=== PATIENT | male | born 1955 | race African-American/Black ===

== ENCOUNTER 2016-10-02 12:28 | Observation (INO) | payer OTHER ==
[~2016-10-02] VITALS: Ht 175.3 cm; Wt 68.0 kg
[~2016-10-02 12:28] MED LIST: AUGMENTIN 875 M1 TAB PO; PERCOCET 325 MG1 TA2 PO; PERCOCET 5-3251 EACH PO; PREDNISONE 20MG20 MG PO; WARFARIN SODIU7.5 M1 PO
--- NOTE | 2016-10-02 13:05 | ED GI/GU/ABDOMINAL COMPLAINT ---
History of Present Illness General Chief Complaint: Abdominal Pain/Flank Pain Stated Complaint: SEVRE ABD PAIN, "HUGE KNOT/LUMP"q Source: patient, old records Exam Limitations: no limitations Vital Signs & Intake/Output Vital Signs & Intake/Output Vital Signs Date Time Temp Pulse Resp B/P Pulse O2 O2 Flow FiO2 Ox Delivery Rate 10/02 1734 96.9 65 18 106/65 97 Room Air 10/02 1713 98.0 20 10/02 1637 96.0 71 18 116/81 98 Room Air 10/02 1442 94.7 74 20 124/75 95 Room Air 10/02 1231 97.0 58 16 97 Room Air Allergies Coded Allergies: NO KNOWN ALLERGIES (05/14/16) Reconcile Medications Warfarin Sodium 7.5 MG TABLET 1 TAB PO 1700 BLOOD THINNER (Reported) Triage Note: TRIAGE; PT TO ED C/O LUMP TO TOP OF GROIN X1 HOUR. STATES PAIN GETTING WORSE. DENIES ANY URINARY S/S. +NAUSEA. Triage Nurses Notes Reviewed? yes Onset: Abrupt Duration: hour(s): (1), constant Timing: recent history Quality/Severity: aching, cramping, sharpness, severe, throbbing Severity Numbers: 10 Location: right lower quadrant Radiation: no radiation Activities at Onset: none Prior Abdominal Problems: similar symptoms No Modifying Factors: none Associated Symptoms: denies HPI: 60-year-old male with history of valve replacement on Coumadin, hernia repair presents complaining of severe 10 out of 10 stabbing sharps throbbing pain to his right lower quadrant and groin for the past 1 hour. He denies any known injury trauma or heavy lifting. He states he has a history of hernia repair in the past is not taken anything for pain. He denies nausea vomiting diarrhea no scrotal pain, swelling, dysuria urgency frequency. He denies any back pain hematuria diarrhea fever chills no other modifying factors or associated symptoms otherwise. (SANTA THIBODEAUX,JENNY) Past History Travel History Traveled to [place] past 21 day No Medical History Any Pertinent Medical History? 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 No (JENNY BEATTY) Review of Systems Review of Systems Constitutional: Reports: see HPI. All Other Systems: Reviewed and Negative Comments Review of systems: See HPI, All other systems negative. Constitutional, no chills no fever, no malaise HEENT: No visual changes no sore throat no congestion Cardiovascular: No chest pain , no palpitation Skin, no rashes, no change in skin Respiratory: No dyspnea no cough no sputum GI: No nausea no vomiting, no diarrhea : No dysuria Muscle skeletal: No joint pain, no back pain, no neck pain, Neurologic: No numbness no headache Psych: No stress Heme/endocrine: No bruising no bleeding Immunology: No lymphadenopathy (JENNY BEATTY) Physical Exam Physical Exam General Appearance: well developed/nourished, alert, moderate distress Gastrointestinal: soft, tenderness, hernia (r inguinal indurated, firm) Comments: Well-developed well-nourished person in no acute distress HEENT: Normal EENT exam; PERRL, EOMI. HEAD is atraumatic. moist mucous membranes. Neck: Supple, normal range of motion Back: Nontender, no CVA tenderness. Full range of motion Cardiovascular: Regular rate and rhythms no murmurs rubs Respiratory: No respiratory distress. Patient speaking in full complete sentences. Breath sounds clear to auscultation bilaterally: NO W/R/R Abdomen: Soft, tender to palpation over the right inguinal region, hernia indurated firm no overlying erythema or warmth nondistended, no appreciable organomegaly. Normal bowel sounds. No rebound/guarding, No appreciable enlargement of the abdominal aorta, No ascites. Extremity: No edema, full range of motion of extremities, Neuro: Alert oriented x3, motor sensory normal,There were no obvious focal neurologic abnormalities. Skin: No appreciable rash on exposed skin, skin is warm and dry. Psych: Mood and affect is normal, memory and judgment is normal. Core Measures ACS in differential dx? No Severe Sepsis Present: No Septic Shock Present: No (JENNY BEATTY) Progress Differential Diagnosis: epididymitis, hernia, orchitis, prostatitis, perforated viscous, SBO, STD, testicular torsion, ureterolithiasis, urinary retention, UTI/ pyelo Plan of Care: Orders Procedure Date/time Status EKG 10/02 1735 Active PARTIAL THROMBOPLASTIN TIME 10/02 1305 Complete PROTHROMBIN TIME 10/02 1305 Complete Saline Lock 10/02 1304 Active LIPASE 10/02 1304 Complete COMPREHENSIVE METABOLIC PANEL 10/02 1304 Complete CBC WITHOUT DIFFERENTIAL 10/02 1304 Complete AMYLASE 10/02 1304 Complete Laboratory Tests 10/02/16 1325: Anion Gap 12, Estimated GFR > 60, BUN/Creatinine Ratio 20.0, Glucose 109 H, Calcium 9.8, Total Bilirubin 1.4 H, AST 98 H, ALT 116 H, Alkaline Phosphatase 86, Total Protein 8.3 H, Albumin 4.5, Globulin 3.8, Albumin/Globulin Ratio 1.2, Amylase 48, Lipase 29, PT 35.6 H, INR 3.43 H, APTT 43 H, CBC w Diff NO MAN DIFF REQ, RBC 4.75, MCV 90.7, MCH 30.2, RDW 14.4, MPV 10.1, Gran % 53.8, Lymphocytes % 35.2, Monocytes % 9.7 H, Eosinophils % 0.9, Basophils % 0.4, Absolute Granulocytes 2.6, Absolute Lymphocytes 1.7, Absolute Monocytes 0.5, Absolute Eosinophils 0, Absolute Basophils 0, PUBS MCHC 33.3 Patient medicated Dilaudid 1 mg IV CAT scan and labs ordered Repeat evaluation patient reports no better with Dilaudid second dose 1 mg IV ordered Tylenol IV ordered discussed with patient family all his lab results pending CAT scan 10/02/2016 3:52:31 PM discussed with patient is CAT scan findings he last ate this morning. Call placed to surgery patient reports pain persists CASE d/w dr arelis catalan surgical lila curiel 170 surgical lila tapia in dept to [place] (SANTA THIBODEAUX,JENNY) Diagnostic Imaging: Viewed by Me: CT Scan. Discussed w/RAD: CT Scan. Radiology Impression: PATIENT: RUFINO ZARATE PRESENT AGE: 60 PATIENT ACCOUNT NO: [id number] : 59 LOCATION: [facility] ([place] ORDERING PHYSICIAN: JENNY THIBODEAUX SERVICE DATE: 10/02/16 EXAM TYPE: CAT - CT ABD & PELVIS W IV CONTRAST EXAMINATION: CT ABDOMEN AND PELVIS WITH CONTRAST. CLINICAL INFORMATION: Incarcerated hernia, right lower quadrant. Right lower quadrant pain. COMPARISON: None TECHNIQUE: Multidetector volumetric imaging was performed of the abdomen and pelvis before and after the IV administration of 93 mL of Optiray 320 intravenous contrast. Sagittal and coronal reformatted images were obtained on the technologist's workstation. DLP: 269 mGy-cm FINDINGS: LUNG BASES: The visualized lung bases are unremarkable. LIVER, GALLBLADDER, AND BILIARY TREE: The liver is normal in size, shape, and attenuation. No focal hepatic lesion or biliary ductal dilatation is present. The gallbladder is unremarkable with no evidence of radiopaque gallstones, gallbladder wall thickening, or obvious pericholecystic inflammatory changes. PANCREAS: Unremarkable. SPLEEN: Unremarkable. ADRENAL GLANDS: Unremarkable. KIDNEYS AND URETERS: The kidneys are normal in size, shape, and attenuation. No hydronephrosis, hydroureter, or calculi seen. No perinephric stranding. There is an 8 mm cyst in the midpole of the right kidney. BLADDER: Unremarkable. GASTROINTESTINAL TRACT: A loop of small bowel projects into a right inguinal hernia with proximal dilatation and air-fluid levels are compatible with a low- grade obstruction. This appears to involve the ileum, just proximal to the ileocecal valve. The majority of the proximal jejunum is nondistended. There is no associated bowel wall thickening, pneumatosis, or free intraperitoneal air. ABDOMINAL WALL: No significant hernia is appreciated. LYMPH NODES: Normal. VASCULAR: Unremarkable. PELVIC VISCERA: Unremarkable. OSSEOUS STRUCTURES: Unremarkable. IMPRESSION: Loop of distal small bowel projects into a right inguinal hernia. There is dilatation with air-fluid levels of small bowel loops in the pelvis proximal to the hernia, suggesting a low-grade obstruction. No bowel wall thickening, pneumatosis, free intraperitoneal air, or focal fluid collection. DICTATED BY: GELA ANGUIANO MD DATE/TIME DICTATED:10/02/161502 DIRECTOR BUSINESS DEVELOPMENT:MARK DATE/TIME TRANSCRIBED:10/02/161502 CONFIDENTIAL, DO NOT COPY WITHOUT APPROPRIATE AUTHORIZATION. <Electronically signed in Other Vendor System> SIGNED BY: GELA ANGUIANO MD 10/02/16 1539 Initial ED EKG: none (JENNY BEATTY) Departure Departure Time of Disposition: 1714 Disposition: STILL A PATIENT Condition: Stable Clinical Impression Primary Impression: Inguinal hernia Secondary Impressions: Bowel obstruction Referrals: PATIENT HAS NO PRIMARY CARE DR (PCP/Family) Departure Forms: Customer Survey General Discharge Information OR/GI Note Spoke With: GUILLE BARON MD ED Treatment Decision: ZARATERUFINO Junior requires urgent operative management or an emergent procedure that cannot be performed in the Emergency Room setting. Transport To: [facility] (JENNY BEATTY) PA/MISSION COORDINATOR Co-Sign Statement Statement: ED Attending supervision documentation- [] I saw and evaluated the patient. I have also reviewed all the pertinent lab results and diagnostic results. I agree with the findings and the plan of care as documented in the PA's/MISSION COORDINATOR's documentation. x I have reviewed the ED Record and agree with the PA's/MISSION COORDINATOR's documentation. [] Additions or exceptions (if any) to the PAs/MISSION COORDINATOR's note and plan are summarized below: [] (JAMAR FIGUEROA,MIRIAN)
[2016-10-02 13:49] LABS: ABSOLUTE BASOPHIL COUNT 0 /CUMM (0.0-0.2); ABSOLUTE EOSINOPHIL COUNT 0 /CUMM (0.0-0.7); ABSOLUTE GRANULOCYTE CT 2.6 /CUMM (1.4-6.5); ABSOLUTE LYMPH COUNT 1.7 /CUMM (1.2-3.4); ABSOLUTE MONOCYTE COUNT 0.5 /CUMM (0.10-0.60); BASOPHIL % 0.4 % (0.0-2.0); EOSINOPHIL % 0.9 % (0-5); HEMATOCRIT 43.1 % (42-52); MEAN CORPUSCULAR HGB 30.2 PG (27.0-31.0); MEAN CORPUSCULAR HGB CONC 33.3 G/DL (33.0-37.0); MEAN CORPUSCULAR VOLUME 90.7 FL (80.0-94.0); MEAN PLATELET VOLUME 10.1 FL (7.4-10.4); PLATELET COUNT 157 /CUMM (130-400); RBC DISTRIBUTION WIDTH 14.4 % (11.5-14.5); RED BLOOD CELL CT 4.75 /CUMM (4.70-6.10); WHITE BLOOD CELL COUNT 4.8 /CUMM (4.8-10.8)
[2016-10-02 13:52] LABS: GRANULOCYTE % 53.8 % (42.2-75.2)
[2016-10-02 14:20] LABS: PT 35.6 SEC (9.4-12.5); PTT 43 SEC (25-37)
--- NOTE | 2016-10-02 15:39 | CT SCAN REPORT ---
EXAMINATION: CT ABDOMEN AND PELVIS WITH CONTRAST. CLINICAL INFORMATION: Incarcerated hernia, right lower quadrant. Right lower quadrant pain. COMPARISON: None TECHNIQUE: Multidetector volumetric imaging was performed of the abdomen and pelvis before and after the IV administration of 93 mL of Optiray 320 intravenous contrast. Sagittal and coronal reformatted images were obtained on the technologist's workstation. DLP: 269 mGy-cm FINDINGS: LUNG BASES: The visualized lung bases are unremarkable. LIVER, GALLBLADDER, AND BILIARY TREE: The liver is normal in size, shape, and attenuation. No focal hepatic lesion or biliary ductal dilatation is present. The gallbladder is unremarkable with no evidence of radiopaque gallstones, gallbladder wall thickening, or obvious pericholecystic inflammatory changes. PANCREAS: Unremarkable. SPLEEN: Unremarkable. ADRENAL GLANDS: Unremarkable. KIDNEYS AND URETERS: The kidneys are normal in size, shape, and attenuation. No hydronephrosis, hydroureter, or calculi seen. No perinephric stranding. There is an 8 mm cyst in the midpole of the right kidney. BLADDER: Unremarkable. GASTROINTESTINAL TRACT: A loop of small bowel projects into a right inguinal hernia with proximal dilatation and air-fluid levels are compatible with a low-grade obstruction. This appears to involve the ileum, just proximal to the ileocecal valve. The majority of the proximal jejunum is nondistended. There is no associated bowel wall thickening, pneumatosis, or free intraperitoneal air. ABDOMINAL WALL: No significant hernia is appreciated. LYMPH NODES: Normal. VASCULAR: Unremarkable. PELVIC VISCERA: Unremarkable. OSSEOUS STRUCTURES: Unremarkable. IMPRESSION: Loop of distal small bowel projects into a right inguinal hernia. There is dilatation with air-fluid levels of small bowel loops in the pelvis proximal to the hernia, suggesting a low-grade obstruction. No bowel wall thickening, pneumatosis, free intraperitoneal air, or focal fluid collection.
--- NOTE | 2016-10-02 17:45 | History & Physical ---
See Addendum General Information and HPI MD Statement: I have seen and personally examined RUFINO ZARATE and documented this H&P. The patient is a 60 year old M who presented with a patient stated chief complaint of [right-sided groin and abdominal pain]. Source of Information: patient, old records Exam Limitations: no limitations History of Present Illness: 60-year-old male with a history of mechanical mitral valve replacement over 20 years ago and bilateral inguinal hernia repairs done on separate incidences approximately 10 years ago, presents to the emergency department with severe right-sided groin pain that started early this morning. Patient states that he was walking and felt sudden onset of tightness in his lower stomach which significantly worsened shortly after and he felt a bulge in his right groin. He presented to the emergency department for further evaluation and treatment. He received several doses of IV pain medication here due to his severe sharp aching pain in the right groin radiating to the right scrotum. He denies any fever nausea vomiting or chills. He denies any urinary symptoms. No back pain. A CT scan of the abdomen and pelvis with IV contrast was performed in the emergency department as well as labs which is significant for an acute right inguinal hernia with possible early small bowel instruction. Surgery was consulted for management. 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 EENTM: Reports: no symptoms. Cardiovascular: Reports: no symptoms. Respiratory: Reports: no symptoms. GI: Reports: see HPI. Genitourinary: Reports: no symptoms. Musculoskeletal: Reports: no symptoms. Skin: Reports: no symptoms. Neurological/Psychological: Reports: no symptoms. Hematologic/Endocrine: Reports: no symptoms. Immunologic/Allergic: Reports: no symptoms. All Other Systems: Reviewed and Negative Exam & Diagnostic Data Last 24 Hrs of Vital Signs/I&O Vital Signs Date Time Temp Pulse Resp B/P Pulse O2 O2 Flow FiO2 Ox Delivery Rate 10/02 1713 98.0 20 10/02 1637 96.0 71 18 116/81 98 Room Air 10/02 1442 94.7 74 20 124/75 95 Room Air 10/02 1231 97.0 58 16 97 Room Air Intake & Output 10/02 1600 10/02 0800 10/02 0000 Intake Total 1000 Output Total Balance 1000 Intake, IV 1000 Physical Exam General Appearance Alert, Oriented X3, Cooperative, Mild Distress (pain) Skin No Rashes, No Breakdown, No Significant Lesion HEENT Atraumatic, PERRLA Neck Supple, No JVD, No thryomegaly Lymphatic Cervical nl Cardiovascular Regular Rate, metallic click noted at mitral valve Lungs Clear to Auscultation, Normal Air Movement Abdomen hypoactive bowel sounds. Abdomen is nondistended. In the right groin there is a moderate size bulge that extends into the proximal scrotum that is tense and edematous. it is exquisitely tender to touch and cannot be reduced Neurological Normal Speech, Strength at 5/5 X4 Ext, Normal Tone, Sensation Intact Extremities No Clubbing, No Cyanosis, No Edema, Normal Pulses, No Tenderness/ Swelling Vascular Normal Pulses Reproductive (MALE) Normal male genitalia Last 24 Hrs of Labs/Eric: Laboratory Tests 10/02/16 1325: Anion Gap 12, Estimated GFR > 60, BUN/Creatinine Ratio 20.0, Glucose 109 H, Calcium 9.8, Total Bilirubin 1.4 H, AST 98 H, ALT 116 H, Alkaline Phosphatase 86, Total Protein 8.3 H, Albumin 4.5, Globulin 3.8, Albumin/Globulin Ratio 1.2, Amylase 48, Lipase 29, PT 35.6 H, INR 3.43 H, APTT 43 H, CBC w Diff NO MAN DIFF REQ, RBC 4.75, MCV 90.7, MCH 30.2, RDW 14.4, MPV 10.1, Gran % 53.8, Lymphocytes % 35.2, Monocytes % 9.7 H, Eosinophils % 0.9, Basophils % 0.4, Absolute Granulocytes 2.6, Absolute Lymphocytes 1.7, Absolute Monocytes 0.5, Absolute Eosinophils 0, Absolute Basophils 0, PUBS MCHC 33.3 Diagnostic Data EKG Results NSR, 65bpm, no st/t wave changes. Other Results PATIENT: RUFINO ZARATE PRESENT AGE: 60 PATIENT ACCOUNT NO: [id number] : 59 LOCATION: [facility] ORDERING PHYSICIAN: JENNY THIBODEAUX SERVICE DATE: 10/02/16 EXAM TYPE: CAT - CT ABD & PELVIS W IV CONTRAST EXAMINATION: CT ABDOMEN AND PELVIS WITH CONTRAST. CLINICAL INFORMATION: Incarcerated hernia, right lower quadrant. Right lower quadrant pain. COMPARISON: None TECHNIQUE: Multidetector volumetric imaging was performed of the abdomen and pelvis before and after the IV administration of 93 mL of Optiray 320 intravenous contrast. Sagittal and coronal reformatted images were obtained on the technologist's workstation. DLP: 269 mGy-cm FINDINGS: LUNG BASES: The visualized lung bases are unremarkable. LIVER, GALLBLADDER, AND BILIARY TREE: The liver is normal in size, shape, and attenuation. No focal hepatic lesion or biliary ductal dilatation is present. The gallbladder is unremarkable with no evidence of radiopaque gallstones, gallbladder wall thickening, or obvious pericholecystic inflammatory changes. PANCREAS: Unremarkable. SPLEEN: Unremarkable. ADRENAL GLANDS: Unremarkable. KIDNEYS AND URETERS: The kidneys are normal in size, shape, and attenuation. No hydronephrosis, hydroureter, or calculi seen. No perinephric stranding. There is an 8 mm cyst in the midpole of the right kidney. BLADDER: Unremarkable. GASTROINTESTINAL TRACT: A loop of small bowel projects into a right inguinal hernia with proximal dilatation and air-fluid levels are compatible with a low-grade obstruction. This appears to involve the ileum, just proximal to the ileocecal valve. The majority of the proximal jejunum is nondistended. There is no associated bowel wall thickening, pneumatosis, or free intraperitoneal air. ABDOMINAL WALL: No significant hernia is appreciated. LYMPH NODES: Normal. VASCULAR: Unremarkable. PELVIC VISCERA: Unremarkable. OSSEOUS STRUCTURES: Unremarkable. IMPRESSION: Loop of distal small bowel projects into a right inguinal hernia. There is dilatation with air-fluid levels of small bowel loops in the pelvis proximal to the hernia, suggesting a low-grade obstruction. No bowel wall thickening, pneumatosis, free intraperitoneal air, or focal fluid collection. DICTATED BY: GELA ANGUIANO MD DATE/TIME DICTATED:10/02/16 / 1503 DRIED YEAST SUPERVISOR:MARK Assessment/Plan Assessment: 60-year-old male with acute right-sided incarcerated inguinal hernia possibly causing low-grade small bowel obstruction. -Discussed with Dr. Ramos, will need operative management, to OR shortly for open right-sided inguinal hernia repair -Pain medication as needed -Supratherapeutic INR, we'll continue to monitor, may need FFP or vitamin K in the OR -Mild transaminitis, likely secondary to his acute illness, will monitor As Ranked By This Provider Problem List: 1. Inguinal hernia 2. Bowel obstruction Core Measures/Miscellaneous Acute Coronary Syndrome ACS Diagnosis: No Cerebrovascular Accident CVA/TIA Diagnosis: No Congestive Heart Failure CHF Diagnosis: No Venous Thromboembolism VTE Risk Factors: Age > 40, [facility] prophylaxis d/t: No contraindications No VTE Pharm Prophylaxis d/t: No contraindications VTE Diagnosis: No VTE Type: NONE VTE Confirmed by (Test): NONE Severe Sepsis Severe Sepsis Present: No Septic Shock Septic Shock Present: No Miscellaneous Documentation Attending Case Discussed With: Dr Ramos Primary Care Physician: PATIENT HAS NO PRIMARY CARE Patient sees these Specialists none Level of Patient Care: General Surgical
--- NOTE | 2016-10-02 19:25 | Admission Core Measures ---
Admission Lab Results I reviewed the following labs: Laboratory Tests 10/02 1325 Chemistry Sodium (137 - 145 mmol/L) 143 Potassium (3.5 - 5.1 mmol/L) 3.7 Chloride (98 - 107 mmol/L) 103 Carbon Dioxide (22 - 30 mmol/L) 29 Anion Gap (5 - 16) 12 BUN (9 - 20 mg/dL) 20 Creatinine (0.7 - 1.2 mg/dL) 1.0 Estimated GFR (>60 ml/min) > 60 BUN/Creatinine Ratio (7 - 25 %) 20.0 Glucose (65 - 99 mg/dL) 109 H Calcium (8.4 - 10.2 mg/dL) 9.8 Total Bilirubin (0.2 - 1.3 mg/dL) 1.4 H AST (17 - 59 U/L) 98 H ALT (21 - 72 U/L) 116 H Alkaline Phosphatase (< 127 U/L) 86 Total Protein (6.3 - 8.2 g/dL) 8.3 H Albumin (3.5 - 5.0 g/dL) 4.5 Globulin (1.9 - 4.2 gm/dL) 3.8 Albumin/Globulin Ratio (1.1 - 2.2 %) 1.2 Amylase (30 - 110 U/L) 48 Lipase (23 - 300 U/L) 29 Coagulation PT (9.4 - 12.5 SEC) 35.6 H INR (0.90 - 1.17) 3.43 H APTT (25 - 37 SEC) 43 H Hematology CBC w Diff NO MAN DIFF REQ WBC (4.8 - 10.8 /CUMM) 4.8 RBC (4.70 - 6.10 /CUMM) 4.75 Hgb (14.0 - 18.0 G/DL) 14.4 Hct (42 - 52 %) 43.1 MCV (80.0 - 94.0 FL) 90.7 MCH (27.0 - 31.0 PG) 30.2 RDW (11.5 - 14.5 %) 14.4 Plt Count (130 - 400 /CUMM) 157 MPV (7.4 - 10.4 FL) 10.1 Gran % (42.2 - 75.2 %) 53.8 Lymphocytes % (20.5 - 51.1 %) 35.2 Monocytes % (1.7 - 9.3 %) 9.7 H Eosinophils % (0 - 5 %) 0.9 Basophils % (0.0 - 2.0 %) 0.4 Absolute Granulocytes (1.4 - 6.5 /CUMM) 2.6 Absolute Lymphocytes (1.2 - 3.4 /CUMM) 1.7 Absolute Monocytes (0.10 - 0.60 /CUMM) 0.5 Absolute Eosinophils (0.0 - 0.7 /CUMM) 0 Absolute Basophils (0.0 - 0.2 /CUMM) 0 PUBS MCHC (33.0 - 37.0 G/DL) 33.3 Admission Meds I reviewed the following Meds: Current Medications Sig/Viviana Start time Last Medication Dose Stop Time Status Admin Acetaminophen 650 MG Q6PRN PRN 10/02 1929 UNVr (Tylenol) Dextrose/Sodium 1,000 ML .[id number] 10/02 1929 UNVr Chloride (D5-Normal Saline) Hydromorphone HCl 1 MG Q2-3 HRS NEEDED.. 10/02 1929 UNVr (Dilaudid) Ondansetron HCl 4 MG Q8P PRN 10/02 1929 UNVr (Zofran) Oxycodone HCl 5 MG Q6 PRN 10/02 1929 UNVr (Roxicodone) Oxycodone HCl 10 MG Q6 PRN 10/02 1929 UNVr (Roxicodone) Promethazine HCl 25 MG Q4P PRN 10/02 1929 UNVr (Phenergen) 10/09 1928 Acute Coronary Syndrome Inclusion Criteria ACS Diagnosis No Inpatient Core Measures LDL Reminder: If No, please order W/I first 24hr of stay Congestive Heart Failure Inclusion Criteria CHF Diagnosis No Cerebrovascular accident Inclusion Criteria CVA/TIA Diagnosis No Inpatient Core Measures Bedside Swallow Eval Reminder: If BSE failed, place ST order Antithrombotic Reminder: Order Antithrombotic Medication by end of day 2 Antithrombotic Reminder: Document Reason Antithrombotic Not ordered by end of day 2 AFIB/Flutter Reminder: If Present, add to problem list AFIB/Flutter Reminder: Order Anticoag Medication for pts with AFIB/Flutter Atherosclerosis Reminder: If Present, add to problem list LDL Reminder: If No, please order W/I first 24hr of stay PT Order Reminder: If No, please order Venous thromboembolism Inpatient Core Measures VTE Risk Factors: Age > 40, Surgery No [facility] VTE prophylaxis d/t No contraindications No VTE Pharm Prophylaxis d/t No contraindications Inclusion Criteria - Per Current guidelines, there needs to be overlap - treatment for the first 5 days of Warfarin therapy. - Parenteral Anticoagulation (IV or SC) needs to be - given along with Warfarin therapy. VTE Diagnosis No VTE Type NONE VTE Confirmed by (Test) NONE Problem List As ranked by this Provider includes Assessment & Plan 1. Inguinal hernia 2. Transaminitis HOME MEDS Home Med List Warfarin Sodium 7.5 MG TABLET 1 TAB PO 1700 BLOOD THINNER (Reported)
--- NOTE | 2016-10-02 19:31 | Surg Short-stay <48hrs Dis Sum ---
Visit Information Visit Dates Admission Date: 10/02/16 Discharge Date: 10/03/16 Surgical Short Stay DC Summary Admission Diagnosis: Incarcerated right inguinal hernia Final Diagnosis: Status post open right inguinal hernia repair secondary to recurrent incarcerated right inguinal hernia Procedure(s): Open right inguinal hernia repair Summary/Significant Findings: 60-year-old male who is greater than 10 years status post bilateral inguinal hernia repairs presents with recurrent right inguinal hernia repair of sudden onset that started earlier today. CT scan was positive for these findings and he was immediately taken to the operating room and underwent an open uncomplicated right inguinal hernia repair with Eric Ramos MD. Patient was then transferred to the floor and did well postoperatively. His pain was well controlled, he has no nausea vomiting fever. He is voiding spontaneously and passing flatus. He is stable for discharge home Condition at Discharge: Good Discharge Disposition: home or self care Discharge instructions provided to patient/family: Yes Post discharge follow-up plan: Follow-up with Dr. Nieto in approximately 7-10 days. Avoid lifting greater than 10 pounds. Keep dressing in place, you may shower but do not submerge wound in water. Take pain medication as needed. Call or go to the ER with severe pain, fever, vomiting or excessive bleeding
[2016-10-02] MEDS ORDERED: OXYCODONE HCL5 M1 PO (19:33)
--- NOTE | 2016-10-02 19:37 | Patient Discharge Instructions ---
Discharge Instructions General Discharge Information You were seen/treated for: Recurrent incarcerated right inguinal hernia You had these procedures: Open Right inguinal hernia repair Special Instructions: Follow-up with Dr. Nieto in approximately 7-10 days. Avoid lifting greater than 10 pounds. Keep dressing in place, you may shower but do not submerge wound in water. Take pain medication as needed. Call or go to the ER with severe pain, fever, vomiting or excessive bleeding Your liver tests were slightly elevated today as well. Please follow up with a primary care doctor for this, contact information was provided for you, please call to make an appointment Diet Continue normal diet: Yes Activity Full Activity/No Limits: No Activity Self Limited: Yes Pounds, do NOT lift more than: 10 Acute Coronary Syndrome Inclusion Criteria At DC or during hospital stay patient has or had the following: ACS DIAGNOSIS No Discharge Core Measures Meds if any: Prescribed or Continued at Discharge Meds if any: NOT Prescribed or Continued at Discharge Congestive Heart Failure Inclusion Criteria At DC or during hospital stay patient has or had the following: CHF DIAGNOSIS No Discharge Core Measures Meds if any: Prescribed or Continued at Discharge Meds if any: NOT Prescribed or Continued at Discharge Cerebrovascular accident Inclusion Criteria At DC or during hospital stay patient has or had the following: CVA/TIA Diagnosis No Discharge Core Measures Meds if any: Prescribed or Continued at Discharge Meds if any: NOT Prescribed or Continued at Discharge Venous thromboembolism Inclusion Criteria VTE Diagnosis No VTE Type NONE VTE Confirmed by (Test) NONE Discharge Core Measures - Per Current guidelines, there needs to be overlap - treatment for the first 5 days of Warfarin therapy. - If discharged on Warfarin prior to 5 days of - overlap therapy, the patient will need to be - assessed for post discharge needs including - *Post discharge parental anticoagulation - *Warfarin and/or parental anticoagulation education - *Follow up date to check INR post discharge At least 5 days overlap therapy as Inpatient No Meds if any: Prescribed or Continued at Discharge Note: Overlap Therapy is Warfarin and Anticoagulant Meds if any: NOT Prescribed or Continued at Discharge
[2016-10-02 21:50] VITALS: BP 120/70
--- NOTE | 2016-10-02 21:58 | PN- General Surgery ---
Subjective Subjective: Postop check: Patient comfortable, no complaints, pain is controlled, no nausea or vomiting, he is tolerating clears states he is hungry and thirsty. Objective Vital Signs and I&Os Vital Signs Date Time Temp Pulse Resp B/P Pulse O2 O2 Flow FiO2 Ox Delivery Rate 10/02 2150 98.0 71 18 120/70 94 Room Air 10/02 1734 96.9 65 18 106/65 97 Room Air 10/02 1713 98.0 20 10/02 1637 96.0 71 18 116/81 98 Room Air 10/02 1442 94.7 74 20 124/75 95 Room Air 10/02 1231 97.0 58 16 97 Room Air Intake & Output 10/02 1600 10/02 0800 10/02 0000 10/01 1600 10/01 0800 10/01 0000 Intake Total 1000 Output Total Balance 1000 Intake, IV 1000 Physical Exam: Well-developed well-nourished no apparent distress. HEENT: Atraumatic, extraocular motion intact Neck: Supple, no lymphadenopathy Heart: Regular rate and rhythm, mechanical click noted Respiratory: No respiratory distress, clear to auscultation bilateral Abdomen: Soft nontender nondistended, normal bowel sounds, slight bloody staining on dressing in the right groin. No swelling. No hernia palpated. Extremities: No edema, full range of motion Neuro: Alert and oriented x3 Psych: Mood affect normal, normal memory normal judgment. Skin: Warm and dry, no rash on exposed skin Assessment/Plan Assessment/Plan Postop day 0 status post open right inguinal hernia repair secondary to acute recurrent right inguinal hernia -Advance diet -Hold Coumadin tonight, resume tomorrow -Pain medication as needed -alps -DC in morning if medically stable -Discussed need for follow-up secondary to mild transaminitis, patient informs me that he has hepatitis C and he forgot to tell us preoperatively. He does not follow with anybody for this, he was referred to primary care doctor in the area. Core Measures/Miscellaneous Venous Thromboembolism VTE Risk Factors: Age > 40, Surgery VTE Contraindications: No Contraindications VTE Diagnosis: No VTE Type: NONE VTE Confirmed by (Test): NONE Beta Jeromy Is Beta Jeromy a Home Med? No Antibiotics Is Patient on Antibiotics? No
[2016-10-03 06:24] VITALS: BP 110/80
--- NOTE | 2016-10-03 06:56 | PN- General Surgery ---
Subjective Subjective: The patient was seen this morning postoperatively day #1. He complains of some mild incisional soreness but is otherwise relatively comfortable. He is tolerating a diet without nausea and ambulating adequately. Objective Vital Signs and I&Os Vital Signs Date Time Temp Pulse Resp B/P Pulse O2 O2 Flow FiO2 Ox Delivery Rate 10/04 623 98.1 69 20 110/80 96 Room Air 10/02 2150 98.0 71 18 120/70 94 Room Air 10/02 1734 96.9 65 18 106/65 97 Room Air 10/02 1713 98.0 20 04/ 1637 96.0 71 18 116/81 98 Room Air 10/02 1442 94.7 74 20 124/75 95 Room Air 10/02 1231 97.0 58 16 97 Room Air Intake & Output 10/03 0800 10/03 0000 10/02 1600 10/02 0800 10/02 0000 / 1600 Intake Total 1070 1000 Output Total 150 Balance 920 1000 Intake, IV 950 1000 Intake, Oral 120 Output, Other 150 Patient 150 lb Weight Physical Exam: Gen.: Alert and in no obvious distress Skin: Warm and dry Abdomen: Soft, mildly distended, appropriate incisional tenderness, bowel sounds positive. Surgical incision is clean, dry, and intact. There is expected mild surrounding edema and ecchymosis but no sign of significant hematoma. Extremities: Bilateral lower extremities are warm without calf tenderness or significant edema. Assessment/Plan Assessment/Plan Assessment: 60-year-old male status post reduction and repair of incarcerated right inguinal hernia postoperative day #1. The patient is progressing as expected, his pain is under adequate control, and he is tolerating a diet without nausea. Plan: Hep-Lock IV fluids Regular diet Continue current pain regiment Out of bed ambulate GI and DVT prophylaxis Discharge home later today Resume Coumadin therapy tonight Core Measures/Miscellaneous Venous Thromboembolism VTE Risk Factors: Age > 40, Surgery VTE Contraindications: No Contraindications VTE Diagnosis: No VTE Type: NONE VTE Confirmed by (Test): NONE Beta Jeromy Is Beta Jeromy a Home Med? No Antibiotics Is Patient on Antibiotics? No
[2016-10-03 11:38] LABS: ABSOLUTE BASOPHIL COUNT 0 /CUMM (0.0-0.2); ABSOLUTE EOSINOPHIL COUNT 0 /CUMM (0.0-0.7); ABSOLUTE MONOCYTE COUNT 0.5 /CUMM (0.10-0.60); BASOPHIL % 0.4 % (0.0-2.0); EOSINOPHIL % 0.6 % (0-5); GRANULOCYTE % 70.8 % (42.2-75.2); HEMATOCRIT 41.9 % (42-52); MEAN CORPUSCULAR HGB 30.6 PG (27.0-31.0); MEAN CORPUSCULAR HGB CONC 33.6 G/DL (33.0-37.0); MEAN CORPUSCULAR VOLUME 91.1 FL (80.0-94.0); MEAN PLATELET VOLUME 10.1 FL (7.4-10.4); PLATELET COUNT 129 /CUMM (130-400); RBC DISTRIBUTION WIDTH 14.4 % (11.5-14.5); WHITE BLOOD CELL COUNT 5.6 /CUMM (4.8-10.8)
[2016-10-03 11:40] LABS: PT 37.1 SEC (9.4-12.5)
--- NOTE | 2016-10-03 11:50 | RADIOLOGY REPORT ---
EXAMINATION: XR ABDOMEN MULTIPLE VIEWS CLINICAL INDICATION: Abdominal distention COMPARISON: d CT 10/02/2016 TECHNIQUE: Supine and upright views of the abdomen FINDINGS: There is no evidence of free air or obstruction. No abnormal calcifications are seen IMPRESSION: Normal exam. No evidence for small bowel obstruction
[2016-10-03 14:34] VITALS: BP 152/90
--- NOTE | 2016-10-04 13:58 | Operative Report ---
Operative/Inv Procedure Report Surgery Date: 10/02/16 Name of Procedure: repair incarcerated right inguinal hernia Pre-Operative Diagnosis: incarcerated right inguinal hernia Post-Operative Diagnosis: same Estimated Blood Loss: less than 50ml Surgeon/Converting Supervisor: LORAINE FIGUEROA,GUILLE Pelletier Anesthesia: general endotracheal tube IV Fluids: lactated Ringer's Implants: none Drains: none Complications: none Condition: stable Operative Indication: patient presented emergency room with a tender painful lump in the right groin consistent with an incarcerated inguinal hernia. Prior to my consult he had also undergone a CT scan of the abdomen and pelvis. This was discussed with the patient. The risks versus benefits and possible complications of surgery were discussed with the patient including but not limited to bleeding infection injury to nerves or blood vessels ischemic bowel and delayed perforation of viscus and need for further surgery. Patient consented the surgery Operative/Procedure Note Note: after informed consent and proper identification the patient was taken to the operating room and placed on the operating room table in the supine position, Venodyne stockings were applied, he underwent a general endotracheal anesthetic. Nextthe abdomen was prepped and draped in normal sterile fashion. Overlying the right groin there is a large protrusion. The skin and subcutaneous tissue. A 2 cm incision was made through the skin and subcutaneous tissue. There is a hernia protruding through a defect in the fasciathere was evidence of suture and a prior hernia repairat the pubic tubercle the patient had recurred small defect in the fascia just proximal to the pubic tubercle. We opened up the sac did not see any ischemic bowel we excised this sac and reduced bowel contents. We retracted the cord and cord vessels and nerves laterally and we repaired the defect with interrupted figure of 8 2-0 Prolene suture. Placed the cord structures back in anatomic position and closed the subcutaneous tissue overlying the cord. We closed the skin with 4-0 Monocryl subcuticular sutures. Dry sterile dressings were placed. We pulled the testicle back into the scrotum. Patient was extubated and taken to recovery in stable condition Findings: ischemic hernia sac, no evidence of ischemic bowel Discharge Disposition: PACU
== END 2016-10-03 15:54 ==
LOC: ENRESERVDT → ENRESERVTM → ERH 12:28 → ER-OR 12:36 → 2NB 19:14 → PACUH 19:14 → DELPENDDIS 19:14 → ENPENDDIS 19:14 → PACUH 19:14 → 2NB 21:22
PROVIDERS: Physician Assistant; Physician Assistant Medical; ADMIT Surgery
DX: K40.30 Unilateral inguinal hernia, with obstruction, without gangrene, not specified as recurrent (principal); Z79.02 Long term (current) use of antithrombotics/antiplatelets
CPT/HCPCS: 36415; 74020; 74177; 82436; 93005; 93010; 96374; 96375; 96376; J0131; J0690; J2250; J2405; J2550; J3010; J7042; Q2036